=== PATIENT | female | born 1945 | race Caucasian/White ===

== ENCOUNTER → 2024-02-06 | Outpatient (CLI) | payer MEDICARE ==
[~2024-02-06] MED LIST: ASPIRIN81 MG PO; DONNATAL1 TAB PO; LIPITOR20 MG PO; NKHM; PERCOCET 325 MG1 TA4 PO; VICO10300 PO
[2024-02-06 12:50] LABS: ALKALINE PHOSPHATASE 89 U/L (46-116); BUN 16 mg/dl (9-23); CHLORIDE 111 mmol/L (98-107); POTASSIUM 3.5 mmol/L (3.4-5.1); TOTAL PROTEIN 6.5 gm/dL (6.0-8.0)
[2024-02-06 12:52] LABS: SGPT/ALT < 7 U/L (5-49)
== END | disposition home or self-care (01) ==
LOC: LAB 11:22
PROVIDERS: ATTEND Orthopaedic Surgery
DX: R53.83 Other fatigue (principal); M54.50 Low back pain, unspecified